=== PATIENT | male | born 2000 | race Caucasian/White ===

== ENCOUNTER 2025-01-08 13:15 | Emergency (ER) | payer OTHER, SELFPAY ==
[2025-01-08 13:16] VITALS: BP 132/70; PULSE 87; RESP 15; TEMP 36.6; O2SAT 100; BMI 31.3
--- NOTE | 2025-01-08 13:33 | EX.ED.DYSGE1 ---
HPI History of Present Illness Chief Complaint: Abscess Informant: patient Onset/Context/Timing Onset: Days Context: Gradual Onset Timing: Continuous Quality: Aching, sharp Location: Gluteal area Worsened by: Sitting Relieved by: Standing Narrative Narrative: Patient presents with abscess over the gluteal area that has been getting worse over the past couple days. Patient states he has had similar symptoms in the past and had to have incision and drainage performed. Patient describes his pain as aching and sharp. Patient states it is worse with sitting and better with standing. Patient admits to some subjective chills. Patient denies any discharge or drainage. Patient denies any nausea or vomiting. PFSH PFS Medical History no medical history no medical history Home Medications ?Medication ?Instructions ?Recorded ?Last Taken ?Type cephalexin 500 mg capsule 500 mg PO Q6 #40 CAPSULES 01/08/25 Unknown Rx Allergy/AdvReac Type Severity Reaction Status Date / Time No Known Allergies Allergy Verified 01/08/25 13:18 Surgical History no surgical history no surgical history Social History Smoking Status: Never smoker ROS ROS ED Constitutional Constitutional ED: Denies chills or fever(s) Eyes Eyes: Denies blurry vision or change in vision ENT ENT ED: Denies rhinorrhea or sore throat Cardiovascular Cardiovascular: Denies chest pain or palpitations Respiratory/Chest Respiratory/Chest: Denies cough or dyspnea Gastrointestinal Gastrointestinal: Denies nausea or vomiting Genitourinary Genitourinary ED: Denies dysuria or hematuria Musculoskeletal Musculoskeletal: Denies back pain or neck pain Integumentary Reports abscess; Denies rash Neurologic Neurologic: Denies headache(s) or weakness Allergic/Immunologic Allergic/Immunologic ED: Denies mouth swelling or urticaria EXAM Physical Exam Const Vital Signs: 01/08/25 13:16 Temperature 97.8 F Temperature Source Oral Pulse Rate 87 Respiratory Rate 15 Blood Pressure 132/70 H Blood Pressure Mean 90 Pulse Ox 100 Oxygen Delivery Method Room Air Positive well nourished and well developed General Appearance ED: well developed and NAD HEENT Reports moist mucous membranes Neck supple and no JVD Resp normal respiratory effort and clear to auscultation bilaterally Cardio regular rate and regular rhythm GI non-tender and non-distended Palpation: soft Extremity normal to inspection Neuro oriented x3, CN's II-XII intact bilaterally and no sensory deficits noted Sensorium / Orientation: alert Motor Exam: strength 5/5 throughout Psych mental status grossly normal Skin Skin Narrative: There is some erythema, warmth, induration, and fluctuance over the right gluteal area near the midline. There is no active discharge or drainage noted. There is tenderness to palpation over the area. MDM MDM MDM Narrative Medical decision making narrative: Patient was advised of the need for incision and drainage. Patient is agreeable with this. Informed consent was obtained. The area was cleaned with chlorhexidine prep. The area was anesthetized with 1% plain lidocaine locally. A small linear incision was made using an 11 blade scalpel. A large amount of purulent drainage was expressed. Iodoform gauze packing was placed. The wound was left open. Bacitracin dressing was applied. Patient tolerated the procedure well. Patient was instructed to use warm compresses. Patient was given a dose of Keflex here. Patient was given a prescription for Keflex. Patient was instructed to follow-up with her primary care physician in 5 to 7 days. Patient understood and was agreeable with the plan. All questions were answered. Discharge Plan Triage Chief Complaint: Abscess ED Provider: Lorenzo Mills Dx/Rx/DC Orders Clinical Impression: Pilonidal abscess, Elevated blood pressure reading Instructions: ED Abscess Incision And Drainage Prescriptions: New cephalexin 500 mg capsule 500 mg PO Q6 Qty: 40 0RF Primary Care Provider: JOENS DURAN Referrals: JONES DURAN NP-C [Primary Care Provider, Family Practice] - 3-5 Days Print Language: Mauritian Disposition Disposition: Home, Self Care
[2025-01-08] MEDS: Lidocaine 1% (20 ml mdv) 20 ML Vial INFILT (13:41)
[2025-01-08 15:03] VITALS: BP 128/70; PULSE 80; RESP 15; TEMP 36.6; O2SAT 100
== END 2025-01-08 15:04 | disposition home or self-care (01) ==
PROVIDERS: Emergency Provider Emergency Medicine; PCP Nurse Practitioner Family; Visit Provider Emergency Medicine
DX: L05.01 Pilonidal cyst with abscess (principal); R03.0 Elevated blood-pressure reading, without diagnosis of hypertension
CPT/HCPCS: 10080; 10060; 99283